=== PATIENT | male | born 1950 | race Caucasian/White ===

== ENCOUNTER → 2020-02-03 08:24 | Outpatient (CLI) | payer MEDICARE, SELFPAY ==
[2020-02-03 10:17] LABS: Absolute Lymphocyte Count 1.42 X10^3/uL (0.83-4.51); Absolute Neutrophil Count 5.5 X10^3/uL (2.0-7.7); Basophil# 0.06 X10^3/uL; Basophil% 0.7 % (0-1); Eosinophil# 0.39 X10^3/uL; Eosinophils% 4.6 % (0-5); Hematocrit 39.6 % (40-54); Hemoglobin 12.7 g/dL (13.0-16.5); Lymphocyte # 1.42 X10^3/ul (4.0); Lymphocyte % 16.7 % (19-41); Mean Corp Hgb Conc 32.1 g/dL (32-36); Mean Corpuscular Volume 99.7 fL (80-94); Mean Platelet Vol. 10.3 fl (6.2-12.0); Monocyte# 1.08 X10^3/uL; Monocyte% 12.7 % (0-10); NRBC Flagged by Analyzer 0 % (0-5); Neutrophil # 5.52 X10^3/uL (2.7-7.7); Neutrophil % 64.9 % (47-70); Platelet Count 252 K/mm3 (150-450); RBC Distribution Width CV 12.3 % (11.6-14.6); RBC Distribution Width SD 45.9 fl (35.1-43.9); Red Blood Count 3.97 M/mm3 (4.6-6.2); White Blood Count 8.5 K/mm3 (4.4-11.0)
[2020-02-03 10:35] LABS: Hemoglobin A1c 5.6 % (3.8-5.6)
[2020-02-03 10:37] LABS: Vitamin D,25 Hydroxy 69.1 ng/mL
[2020-02-03 10:55] LABS: ALB/GLOB Ratio 0.9 RATIO (0.9-2.4); AST(SGOT) 26 U/L (15-37); Alanine Aminotransfer ALT/SGPT 32 U/L (16-61); Albumin, Serum 3.6 g/dL (3.2-5.0); Alkaline Phosphatase 49 U/L (45-117); Anion Gap 7 (5-15); BUN 18 mg/dL (7-18); BUN/Creat Ratio 18.2 RATIO (10-20); Calcium,Total 8.8 mg/dL (8.5-10.1); Chloride 103 mmol/L (98-107); Cholesterol 144 mg/dL (200); Creatinine, Serum 0.99 mg/dL (0.70-1.30); EST Glomerular Filtration Rate 79 mL/min (>60); Est Glom Filt Rate - Afr Amer 96 mL/min (>60); Globulin 3.9 g/dL (2.2-4.2); Glucose 90 mg/dL (74-106); High Density Lipoprotein 41 mg/dL; Potassium 3.7 mmol/L (3.5-5.1); Protein, Total 7.5 g/dL (6.4-8.2); Sodium Level 139 mmol/L (136-145); Triglycerides 61 mg/dL; Very Low Density Lipoprotein 12 mg/dL (5-40)
== END ==
DX: I10 Essential (primary) hypertension (principal); R73.03 Prediabetes; Z13.29 Encounter for screening for other suspected endocrine disorder
CPT/HCPCS: 36415; 80053; 80061; 82306; 83036; 85025

== ENCOUNTER → 2020-08-10 09:24 | Outpatient (CLI) | payer MEDICARE, SELFPAY ==
[2020-08-10 10:09] LABS: Absolute Lymphocyte Count 1.16 X10^3/uL (0.83-4.51); Absolute Neutrophil Count 3.8 X10^3/uL (2.0-7.7); Basophil# 0.06 X10^3/uL; Eosinophil# 0.24 X10^3/uL; Hematocrit 42.8 % (40-54); Hemoglobin 13.8 g/dL (13.0-16.5); Lymphocyte # 1.16 X10^3/ul (4.0); Lymphocyte % 19.4 % (19-41); Mean Corp Hgb Conc 32.2 g/dL (32-36); Mean Corpuscular Hgb 32.2 pg (27.0-32.0); Mean Corpuscular Volume 99.8 fL (80-94); Mean Platelet Vol. 9.7 fl (6.2-12.0); Monocyte# 0.71 X10^3/uL; Monocyte% 11.9 % (0-10); NRBC Flagged by Analyzer 0 % (0-5); Neutrophil % 63.5 % (47-70); Platelet Count 253 K/mm3 (150-450); RBC Distribution Width CV 12.6 % (11.6-14.6); RBC Distribution Width SD 45.7 fl (35.1-43.9); Red Blood Count 4.29 M/mm3 (4.6-6.2)
[2020-08-10 10:19] LABS: ALB/GLOB Ratio 0.9 RATIO (0.9-2.4); AST(SGOT) 25 U/L (15-37); Alanine Aminotransfer ALT/SGPT 34 U/L (16-61); Albumin, Serum 3.7 g/dL (3.2-5.0); Alkaline Phosphatase 57 U/L (45-117); Anion Gap 6 (5-15); BUN 22 mg/dL (7-18); BUN/Creat Ratio 22.6 RATIO (10-20); Calcium,Total 9.2 mg/dL (8.5-10.1); Chloride 105 mmol/L (98-107); Creatinine, Serum 0.97 mg/dL (0.70-1.30); EST Glomerular Filtration Rate 81 mL/min (>60); Est Glom Filt Rate - Afr Amer 98 mL/min (>60); Ferritin 139 ng/mL (26-388); Globulin 4.2 g/dL (2.2-4.2); Glucose 102 mg/dL (74-106); Iron 103 ug/dL (65-175); Potassium 3.5 mmol/L (3.5-5.1); Protein, Total 7.9 g/dL (6.4-8.2); Sodium Level 140 mmol/L (136-145)
[2020-08-10 12:26] LABS: Vitamin B12 396 pg/mL (211-911)
== END ==
PROVIDERS: Referring Provider Nurse Practitioner Adult Health; Visit Provider Nurse Practitioner Adult Health
DX: D64.9 Anemia, unspecified (principal); I10 Essential (primary) hypertension
CPT/HCPCS: 36415; 80053; 82607; 82728; 83540; 85025

== ENCOUNTER → 2021-03-07 08:21 | Outpatient (CLI) | payer MEDICARE, SELFPAY ==
[2021-03-07 10:24] LABS: Absolute Lymphocyte Count 1.32 X10^3/uL (0.83-4.51); Absolute Neutrophil Count 6.1 X10^3/uL (2.0-7.7); Basophil# 0.08 X10^3/uL; Basophil% 0.9 % (0-1); Eosinophil# 0.32 X10^3/uL; Eosinophils% 3.6 % (0-5); Hematocrit 40.5 % (40-54); Hemoglobin 12.5 g/dL (13.0-16.5); Lymphocyte # 1.32 X10^3/ul (0.83-4.51); Lymphocyte % 15.1 % (19-41); Mean Corp Hgb Conc 30.9 g/dL (32-36); Mean Corpuscular Hgb 30.4 pg (27.0-32.0); Mean Corpuscular Volume 98.5 fL (80-94); Mean Platelet Vol. 9.5 fl (6.2-12.0); Monocyte# 0.88 X10^3/uL; NRBC Flagged by Analyzer 0 % (0-5); Neutrophil # 6.14 X10^3/uL (2.7-7.7); Neutrophil % 70.1 % (47-70); Platelet Count 388 K/mm3 (150-450); RBC Distribution Width CV 12.6 % (11.6-14.6); Red Blood Count 4.11 M/mm3 (4.6-6.2); White Blood Count 8.8 K/mm3 (4.4-11.0)
[2021-03-07 10:35] LABS: Cholesterol 168 mg/dL (200); High Density Lipoprotein 38 mg/dL; PSA,Total - Annual Screen 3.27 ng/mL (0.00-4.00); Triglycerides 82 mg/dL; Very Low Density Lipoprotein 16 mg/dL (5-40)
== END ==
PROVIDERS: Referring Provider Nurse Practitioner Adult Health; Visit Provider Nurse Practitioner Adult Health
DX: I10 Essential (primary) hypertension (principal); Z12.5 Encounter for screening for malignant neoplasm of prostate
CPT/HCPCS: 36415; 80061; 84153; 85025; G0103

== ENCOUNTER 2021-07-22 09:03 | Outpatient (CLI) | payer MEDICARE, SELFPAY ==
[2021-07-22 11:44] LABS: ALB/GLOB Ratio 0.8 RATIO (0.9-2.4); AST(SGOT) 22 U/L (15-37); Alanine Aminotransfer ALT/SGPT 33 U/L (16-61); Albumin, Serum 3.4 g/dL (3.2-5.0); Alkaline Phosphatase 64 U/L (45-117); Anion Gap 4 (5-15); BUN 27 mg/dL (7-18); BUN/Creat Ratio 26.7 RATIO (10-20); Calcium,Total 9.7 mg/dL (8.5-10.1); Chloride 108 mmol/L (98-107); Creatinine, Serum 1.01 mg/dL (0.70-1.30); EST Glomerular Filtration Rate 77 mL/min (>60); Est Glom Filt Rate - Afr Amer 93 mL/min (>60); Ferritin 129 ng/mL (26-388); Globulin 4.5 g/dL (2.2-4.2); Glucose 115 mg/dL (74-106); Iron 109 ug/dL (65-175); Iron Binding Capacity,Total 309 ug/dL (250-450); PERCENT IRON SATURATION 35.3 % (15.0-55.0); Potassium 3.2 mmol/L (3.5-5.1); Protein, Total 7.9 g/dL (6.4-8.2); Sodium Level 140 mmol/L (136-145)
== END 2021-07-22 23:59 | disposition home or self-care (01) ==
PROVIDERS: Referring Provider Nurse Practitioner Adult Health; Visit Provider Nurse Practitioner Adult Health
DX: D64.9 Anemia, unspecified (principal); I10 Essential (primary) hypertension
CPT/HCPCS: 36415; 80053; 82728; 82746; 83540; 83550

== ENCOUNTER 2021-07-23 08:51 | Outpatient (CLI) | payer MEDICARE, SELFPAY | END 2021-07-23 23:59 | disposition home or self-care (01) | LOC: MTLAB 08:52 | PROVIDERS: Referring Provider Nurse Practitioner Adult Health; Visit Provider Nurse Practitioner Adult Health | DX: D64.9 Anemia, unspecified (principal) | CPT/HCPCS: 82274 ==

== ENCOUNTER → 2022-09-01 | Outpatient (CLI) | payer MEDICARE, SELFPAY ==
[2022-09-01 12:33] LABS: Hematocrit 43.4 % (40-54); Hemoglobin 13.9 g/dL (13.0-16.5); Mean Corpuscular Hgb 31.4 pg (27.0-32.0); Mean Platelet Vol. 9.4 fl (6.2-12.0); Platelet Count 284 K/mm3 (150-450); RBC Distribution Width CV 13.3 % (11.6-14.6); RBC Distribution Width SD 47.9 fl (35.1-43.9); Red Blood Count 4.43 M/mm3 (4.6-6.2); White Blood Count 7.4 K/mm3 (4.4-11.0)
[2022-09-01 12:48] LABS: Hemoglobin A1c 5.7 % (3.8-5.6)
[2022-09-01 13:07] LABS: ALB/GLOB Ratio 0.9 RATIO (0.9-2.4); AST(SGOT) 29 U/L (15-37); Alanine Aminotransfer ALT/SGPT 41 U/L (16-61); Albumin, Serum 3.7 g/dL (3.2-5.0); Alkaline Phosphatase 59 U/L (45-117); Anion Gap 5 (5-15); BUN 25 mg/dL (7-18); BUN/Creat Ratio 24.8 RATIO (10-20); Calcium,Total 9.7 mg/dL (8.5-10.1); Chloride 107 mmol/L (98-107); Creatinine, Serum 1.01 mg/dL (0.70-1.30); EST Glomerular Filtration Rate 77 mL/min (>60); Est Glom Filt Rate - Afr Amer 93 mL/min (>60); Globulin 4.1 g/dL (2.2-4.2); Glucose 100 mg/dL (74-106); Potassium 3.4 mmol/L (3.5-5.1); Protein, Total 7.8 g/dL (6.4-8.2); Sodium Level 139 mmol/L (136-145)
== END | disposition home or self-care (01) ==
LOC: LAB 11:41
PROVIDERS: Referring Provider Nurse Practitioner Family; Visit Provider Nurse Practitioner Family
DX: I10 Essential (primary) hypertension (principal); D64.9 Anemia, unspecified; R73.03 Prediabetes
CPT/HCPCS: 36415; 80053; 83036; 85027

== ENCOUNTER → 2023-03-05 | Outpatient (CLI) | payer MEDICARE, SELFPAY ==
[2023-03-05 08:09] LABS: Hematocrit 42.2 % (40-54); Hemoglobin 13.4 g/dL (13.0-16.5); Mean Corp Hgb Conc 31.8 g/dL (32-36); Mean Corpuscular Hgb 31.9 pg (27.0-32.0); Mean Corpuscular Volume 100.5 fL (80-94); Mean Platelet Vol. 9.7 fl (6.2-12.0); Platelet Count 289 K/mm3 (150-450); RBC Distribution Width CV 13.1 % (11.6-14.6); RBC Distribution Width SD 48.6 fl (35.1-43.9); White Blood Count 7.6 K/mm3 (4.4-11.0)
[2023-03-05 08:43] LABS: Anion Gap 4 (5-15); BUN 31 mg/dL (7-18); BUN/Creat Ratio 31.1 RATIO (10-20); Calcium,Total 9.5 mg/dL (8.5-10.1); Chloride 112 mmol/L (98-107); Cholesterol 165 mg/dL (200); EST Glomerular Filtration Rate 78 mL/min (>60); Est Glom Filt Rate - Afr Amer 94 mL/min (>60); Glucose 104 mg/dL (74-106); High Density Lipoprotein 45 mg/dL; Potassium 3.9 mmol/L (3.5-5.1); Sodium Level 144 mmol/L (136-145); Triglycerides 86 mg/dL; Very Low Density Lipoprotein 17 mg/dL (5-40)
[2023-03-05 09:23] LABS: Vitamin D,25 Hydroxy 61.9 ng/mL
[2023-03-05 20:10] LABS: Hemoglobin A1c 5.6 % (3.8-5.6)
== END | disposition home or self-care (01) ==
LOC: LAB 07:18
PROVIDERS: Nurse Practitioner Family
DX: I10 Essential (primary) hypertension (principal); D64.9 Anemia, unspecified; E78.5 Hyperlipidemia, unspecified; R73.03 Prediabetes; E55.9 Vitamin D deficiency, unspecified
CPT/HCPCS: 36415; 80048; 80061; 82306; 83036; 85027

== ENCOUNTER → 2023-09-02 | Outpatient (CLI) | payer MEDICARE, SELFPAY ==
[2023-09-02 09:47] LABS: Absolute Lymphocyte Count 1.32 X10^3/uL (0.83-4.51); Absolute Neutrophil Count 4.3 X10^3/uL (2.0-7.7); Basophil# 0.08 X10^3/uL; Basophil% 1.2 % (0-1); Eosinophil# 0.41 X10^3/uL; Hematocrit 41.6 % (40-54); Hemoglobin 13.6 g/dL (13.0-16.5); Lymphocyte # 1.32 X10^3/ul (0.83-4.51); Lymphocyte % 19.2 % (19-41); Mean Corp Hgb Conc 32.7 g/dL (32-36); Mean Corpuscular Hgb 32.5 pg (27.0-32.0); Mean Corpuscular Volume 99.3 fL (80-94); Mean Platelet Vol. 9.5 fl (6.2-12.0); Monocyte# 0.79 X10^3/uL; Monocyte% 11.5 % (0-10); NRBC Flagged by Analyzer 0 % (0-5); Neutrophil # 4.26 X10^3/uL (2.7-7.7); Platelet Count 277 K/mm3 (150-450); RBC Distribution Width CV 12.9 % (11.6-14.6); RBC Distribution Width SD 47.2 fl (35.1-43.9); Red Blood Count 4.19 M/mm3 (4.6-6.2); White Blood Count 6.9 K/mm3 (4.4-11.0)
[2023-09-02 10:10] LABS: AST(SGOT) 32 U/L (15-37); Alanine Aminotransfer ALT/SGPT 37 U/L (16-61); Albumin, Serum 3.8 g/dL (3.2-5.0); Alkaline Phosphatase 53 U/L (45-117); Anion Gap 5 (5-15); BUN 33 mg/dL (7-18); BUN/Creat Ratio 30.6 RATIO (10-20); Calcium,Total 9.6 mg/dL (8.5-10.1); Chloride 107 mmol/L (98-107); Creatinine, Serum 1.08 mg/dL (0.70-1.30); EST Glomerular Filtration Rate 71 mL/min (>60); Est Glom Filt Rate - Afr Amer 86 mL/min (>60); Glucose 99 mg/dL (74-106); Potassium 3.6 mmol/L (3.5-5.1); Protein, Total 7.8 g/dL (6.4-8.2); Sodium Level 139 mmol/L (136-145)
== END | disposition home or self-care (01) ==
LOC: LAB 09:28
PROVIDERS: Referring Provider Nurse Practitioner Family; Visit Provider Nurse Practitioner Family
DX: I10 Essential (primary) hypertension (principal)
CPT/HCPCS: 36415; 80053; 85025

== ENCOUNTER → 2024-03-08 | Outpatient (CLI) | payer MEDICARE, SELFPAY ==
--- OUTSIDE RECORDS SUMMARY | 2024-03-08 10:50 | XMS RPT_ITS | CCD ---
Author Organization [place] [facility] Results Test Name Value Interpretation Reference Range Facil itsony CNPDeann 08-23-2020 CNPN Telephone ([facility]) JUANCHO PEREZ ([id number]) 1950 M Date Time Provider Department 08/23/20 VELMA OSCAR) [facility] During your visit today, we recorded the following information about you: Velma Oscar PA-C 08/23/2020 10:59 AM Signed Let patient know their covid19 test was negative. Adali Jin LPN 08/23/2020 11:58 AM Signed Left message for patient with results.Adali Jin LPN Allergies As of Date: 08/23/2020 (No Known Allergies) Date Reviewed: 08/22/2020 Reviewed by: Cynthia Garvey Ma - Fully Assessed Reason for Visit: Results [95] Prescriptions as of 08/23/2020 Sig: LISINOPRIL 10 MG TABLET Take 10 mg by mouth once ranulfo* TRIAMTERENE 37.5 MG-HYDROCHLO* Take 1 capsule by mouth once * Problem List As Of Date: 08/23/2020 (None) Encounter Status:Closed by ADALI JIN LPN on 08/23/20 [facility] CNOVon 08-22-2020 CNOV Office Visit ([facility] ) JUANCHO PEREZ ([id number]) 1950 M Date Time Provider Department 08/22/20 12:00 PM JOSE STORY [facility] During your visit today, we recorded the following information about you: Temperature Pulse Respiration Blood pressure 98.7 degrees 102/minute 16/minute 112/74 Weight 86 kg Jose Story MD 08/22/2020 12:21 PM Signed Patient presents with: Cough: with runny nose x 4 days AND + exposure to COVID with daughter in house HPI: Feeling sick for 5 days. Daughter sick [place], tested positive for COVID this week. Positive symptoms: Cough, Nasal Congestion, Rhinorrhea, resolved Sore throat, Negative symptoms: Shortness of breath, Wheezing, Earache, Sinus pressure, Fever, Chills, Body Aches, Headache, Nausea, Vomiting, Diarrhea, loss of taste/smell, OTC: coricidin PAST MEDICAL HISTORY Diagnosis Date - Essential hypertension PAST SURGICAL HISTORY Procedure Laterality Date - NONE MEDICATIONS: Current Outpatient Medications Medication Sig - lisinopril (ZESTRIL, PRINIVIL) 10 mg tablet Take 10 mg by mouth once daily. - triamterene-hydroCHLO ROthiazide 37.5-25 mg per capsule Take 1 capsule by mouth once daily. No current facility-administered medications for this visit. ALLERGIES: ALLERGIES No Known Allergies VITALS: BP 112/74 Pulse 102 Temp 37.1 ?C (98.7 ?F) (Left Tympanic) Resp 16 Wt 86 kg (189 lb 9.6 oz) SpO2 98% PHYSICAL EXAM: GEN: Pleasant, in no acute distress. HEENT: PERRL, EOMI, conjunctiva clear Sinuses: non-tender frontal sinus, non-tender maxillary sinuses Throat: moist mucous membranes, chew tobacco remnants, no erythema, no exudate Neck: supple, no thyromegaly, no lymphadenopathy HEART: regular rate and rhythm, no murmurs LUNGS: clear to auscultation, no wheezes or crackles, no increased WOB; frequent cough (reports something went down the wrong pipe) ASSESSMENT/PLAN: 1. Viral upper respiratory tract infection - ICD9: 465.9, ICD10: J06.9 (primary diagnosis) 2. Exposure to confirmed case of COVID-19 - ICD9: , ICD10: Z20.822 - suspect viral URI, probable COVID-19. - Discussed supportive care treatment with home isolation and cold medicine. Discussed risks/benefits of COVID vaccine. COVID-19 testing accepted. - 2019 CORONAVIRUS Jose Story MD Referring Provider: SELF [200] Allergies As of Date: 08/22/2020 (No Known Allergies) Date Reviewed: 08/22/2020 Reviewed by: Cynthia Garvey Ma - Fully Assessed Reason for Visit: Cough [28] Cmt: with runny nose x 4 days AND + exposure to COVID with daughter in house Primary Visit Diagnosis:Viral upper respiratory tract infection [J06.9] Other Visit Diagnosis:Exposure to confirmed case of COVID-19 [Z20.822] Order(s):2019 CORONAVIRUS [SQCOVID] Order #: [id number] FUTURE Prescriptions as of 08/22/2020 Sig: LISINOPRIL 10 MG TABLET Take 10 mg by mouth once ranulfo* TRIAMTERENE 37.5 MG-HYDROCHLO* Take 1 capsule by mouth once * Problem List As Of Date: 08/22/2020 (None) Encounter Status:Closed by JOSE STORY MD on 08/22/20 Normal [facility] Coronavirus 2019on 1 SARS-CoV-2 (COVID-19) RNA HERIBERTO+probe Ql (Unsp spec) UPPER RESPIRATORY TRACT SWAB Normal [facility] Comment on above: Performed By: #### C OVID #### [place] [id number] SARS-CoV-2 (COVID-19) RNA HREIBERTO+probe Ql (Unsp spec) SARS-CoV-2 (agent of COVID-19) Not Detected by RT-PCR or equivalent method. Normal SARS-CoV-2 (agent of COVID-19) Not Detected by RT-PCR or equivalent method. [facility] Comment on above: Result Comment: This test was developed and its performance characteristics determined by [facility] [place]. This test has been authorized by FDA under an Emergency Use Authorization (EUA). This test has been validated in accordance with the FDA's Guidance Document Policy for Diagnostics Testing in Laboratories Certified to Perform High Complexity Testing under CLIA prior to Emergency use Authorization for Coronavirus Disease 2019 during the Public Health Emergency issued on July 16, 2019. Test performed by [facility], [facility] [place], [address] [address]. Performed By: #### C OVID #### [facility] [address] [address] Progress note 08-22-2020 Note Date & Type Note Facility 08-22-2020 Note HNO ID: [id number] Author: Jose Story Service: ? Author Type: Physician Type: Progress Notes Filed: 08/22/2020 12:21 PM Note Text: Patient presents with: Cough: with runny nose x 4 days AND + exposure to COVID with daughter in house HPI: Feeling sick for 5 days. Daughter sick [place], tested positive for COVID this week. Positive symptoms: Cough, Nasal Congestion, Rhinorrhea, resolved Sore throat, Negative symptoms: Shortness of breath, Wheezing, Earache, Sinus pressure, Fever, Chills, Body Aches, Headache, Nausea, Vomiting, Diarrhea, loss of taste/smell, OTC: coricidin PAST MEDICAL HISTORY Diagnosis Date - Essential hypertension PAST SURGICAL HISTORY Procedure Laterality Date - NONE MEDICATIONS: Current Outpatient Medications Medication Sig - lisinopril (ZESTRIL, PRINIVIL) 10 mg tablet Take 10 mg by mouth once daily. - triamterene-hydroCHLOROthiazide 37.5-25 mg per capsule Take 1 capsule by mouth once daily. No current facility-administered medications for this visit. ALLERGIES: ALLERGIES No Known Allergies VITALS: BP 112/74 Pulse 102 Temp 37.1 ?C (98.7 ?F) (Left Tympanic) Resp 16 Wt 86 kg (189 lb 9.6 oz) SpO2 98% PHYSICAL EXAM: GEN: Pleasant, in no acute distress. HEENT: PERRL, EOMI, conjunctiva clear Sinuses: non-tender frontal sinus, non-tender maxillary sinuses Throat: moist mucous membranes, chew tobacco remnants, no erythema, no exudate Neck: supple, no thyromegaly, no lymphadenopathy HEART: regular rate and rhythm, no murmurs LUNGS: clear to auscultation, no wheezes or crackles, no increased WOB; frequent cough (reports something went down the wrong pipe) ASSESSMENT/PLAN: 1. Viral upper respiratory tract infection - ICD9: 465.9, ICD10: J06.9 (primary diagnosis) 2. Exposure to confirmed case of COVID-19 - ICD9: , ICD10: Z20.822 - suspect viral URI, probable COVID-19. - Discussed supportive care treatment with home isolation and cold medicine. Discussed risks/benefits of COVID vaccine. COVID-19 testing accepted. - 2019 CORONAVIRUS Jose Story MD [facility] Summary Purpose Family History No Family History Records Found Advance Directives No Advanced Directives Records Found Additional Source Comments (unrecognized sect ion and content) No Status Records Found INFORMATION SOURCE (unrecogn ized section and content) DATE CREATED AUTHOR 06/16/2021 [facility] FOR RECORDS PERTAINING TO PATIENTS WHO ARE OR HAVE BEEN ENROLLED IN A CHEMICAL DEPENDENCY/SUBSTANCEABUSE PROGRAM, SOME INFORMATION MAY BE OMITTED. This clinical summary was aggregated from multiple sources. Caution should be exercised in using it in the provision of clinical care. This summary normalizes information from multiple sources, and as a consequence, information in this document may materially change the coding, format and clinical context of patient data. In addition, data may be omitted in some cases. CLINICAL DECISIONS SHOULD BE BASED ON THE PRIMARY CLINICAL RECORDS. [employer] provides no warranty or guarantee of the accuracy or completeness of information in this document.
[2024-03-08 12:51] LABS: Absolute Lymphocyte Count 1.39 X10^3/uL (0.83-4.51); Basophil# 0.06 X10^3/uL; Basophil% 0.8 % (0-1); Eosinophil# 0.14 X10^3/uL; Eosinophils% 1.9 % (0-5); Hematocrit 41.5 % (40-54); Hemoglobin 13.5 g/dL (13.0-16.5); Lymphocyte # 1.39 X10^3/ul (0.83-4.51); Mean Corp Hgb Conc 32.5 g/dL (32-36); Mean Corpuscular Hgb 32.5 pg (27.0-32.0); Mean Corpuscular Volume 99.8 fL (80-94); Monocyte# 0.73 X10^3/uL; NRBC Flagged by Analyzer 0 % (0-5); Neutrophil # 4.97 X10^3/uL (2.7-7.7); Platelet Count 263 K/mm3 (150-450); RBC Distribution Width CV 12.6 % (11.6-14.6); RBC Distribution Width SD 46.7 fl (35.1-43.9); Red Blood Count 4.16 M/mm3 (4.6-6.2); White Blood Count 7.3 K/mm3 (4.4-11.0)
[2024-03-08 13:34] LABS: ALB/GLOB Ratio 0.9 RATIO (0.9-2.4); AST(SGOT) 30 U/L (15-37); Alanine Aminotransfer ALT/SGPT 34 U/L (16-61); Albumin, Serum 3.8 g/dL (3.2-5.0); Alkaline Phosphatase 52 U/L (45-117); Anion Gap 6 (5-15); BUN 28 mg/dL (7-18); BUN/Creat Ratio 25.9 RATIO (10-20); Calcium,Total 9.8 mg/dL (8.5-10.1); Chloride 106 mmol/L (98-107); Cholesterol 171 mg/dL (200); Creatinine, Serum 1.08 mg/dL (0.70-1.30); EST Glomerular Filtration Rate 71 mL/min (>60); Est Glom Filt Rate - Afr Amer 86 mL/min (>60); Globulin 4.3 g/dL (2.2-4.2); Glucose 97 mg/dL (74-106); High Density Lipoprotein 49 mg/dL; Potassium 3.8 mmol/L (3.5-5.1); Protein, Total 8.1 g/dL (6.4-8.2); Sodium Level 138 mmol/L (136-145); Triglycerides 73 mg/dL; Very Low Density Lipoprotein 15 mg/dL (5-40)
[2024-03-08 14:27] LABS: Hemoglobin A1c 5.7 % (3.8-5.6)
[2024-03-08 21:27] LABS: Vitamin D,25 Hydroxy 46.5 ng/mL
== END | disposition home or self-care (01) ==
LOC: VSLAB 10:30
PROVIDERS: PCP Nurse Practitioner Family; Visit Provider Nurse Practitioner Family
DX: I10 Essential (primary) hypertension (principal); E78.5 Hyperlipidemia, unspecified; R73.03 Prediabetes; E55.9 Vitamin D deficiency, unspecified
CPT/HCPCS: 36415; 80053; 80061; 82306; 83036; 84443; 85025

== ENCOUNTER → 2025-03-07 | Outpatient (CLI) | payer MEDICARE, SELFPAY ==
[2025-03-07 12:11] LABS: Hematocrit 40.6 % (40-54); Hemoglobin 13.2 g/dL (13.0-16.5); Immature Granulocytes Count 0.020 X10^3/uL (0.0-0.0); Mean Corp Hgb Conc 32.5 g/dL (32-36); Mean Corpuscular Volume 100.7 fL (80-94); Mean Platelet Vol. 10.3 fl (6.2-12.0); NRBC Flagged by Analyzer 0 % (0-5); Platelet Count 265 K/mm3 (150-450); RBC Distribution Width CV 12.8 % (11.6-14.6); RBC Distribution Width SD 48.2 fl (35.1-43.9); Red Blood Count 4.03 M/mm3 (4.6-6.2); White Blood Count 6.7 K/mm3 (4.4-11.0)
[2025-03-07 14:30] LABS: AST(SGOT) 36 U/L (<=37); Alanine Aminotransfer ALT/SGPT 31 U/L (<=46); Albumin, Serum 4.3 g/dL (3.4-4.8); Alkaline Phosphatase 46 U/L (40-129); Anion Gap 12 (5-15); BUN 31 mg/dL (4-19); BUN/Creat Ratio 25.6 RATIO (10-20); Calcium,Total 9.6 mg/dL (7.6-11.0); Carbon Dioxide 24.2 mmol/L (21.0-32.0); Chloride 106 mmol/L (98-108); Cholesterol 174 mg/dL (<=200); Globulin 3.3 g/dL (2.2-4.2); Glucose 99 mg/dL (70-99); Low Density Lipoprotein Calc. 112 mg/dL; PSA,Total - Annual Screen 4.55 ng/mL (0.02-4.00); Potassium 4.0 mmol/L (3.3-5.1); Triglycerides 79 mg/dL; Very Low Density Lipoprotein 16 mg/dL (5-40); Vitamin D,25 Hydroxy 57.7 ng/mL (30-100); cholesterol:hdl ratio screen 3.68
== END | disposition home or self-care (01) ==
LOC: VSLAB 08:15
PROVIDERS: PCP Nurse Practitioner Family
DX: I10 Essential (primary) hypertension (principal); E78.5 Hyperlipidemia, unspecified; E55.9 Vitamin D deficiency, unspecified; R73.03 Prediabetes; Z12.5 Encounter for screening for malignant neoplasm of prostate
CPT/HCPCS: 36415; 80053; 80061; 82306; 83036; 84153; 85025; G0103

== ENCOUNTER → 2025-03-16 | Outpatient (CLI) | payer MEDICARE, SELFPAY ==
[2025-03-16 12:43] LABS: Cholesterol 168 mg/dL (<=200); Low Density Lipoprotein Calc. 110 mg/dL; Triglycerides 59 mg/dL; Very Low Density Lipoprotein 12 mg/dL (5-40); Vitamin D,25 Hydroxy 54.5 ng/mL (30-100); cholesterol:hdl ratio screen 3.61
[2025-03-17 13:08] LABS: PSA, Free 0.85 ng/mL; PSA, Free % 19.4 % (.); PSA, Total Ultrasensitive 4.380 ng/mL (0.000-4.000)
== END | disposition home or self-care (01) ==
LOC: VSLAB 08:03
PROVIDERS: PCP Nurse Practitioner Family
DX: R97.20 Elevated prostate specific antigen [PSA] (principal); E55.9 Vitamin D deficiency, unspecified; E78.5 Hyperlipidemia, unspecified
CPT/HCPCS: 36415; 80061; 82306; 84153; 84154